=== PATIENT | female | born 1995 | race Caucasian/White ===

== ENCOUNTER 2017-01-15 21:00 | Observation (INO) | payer MEDICAID ==
[2017-01-15] MEDS ORDERED: TYLENOL 325 MG PO ONE (21:33)
--- NOTE | 2017-01-15 21:44 | ERPHSYRPT ---
- History of Present Illness Time Seen by Provider: 01/15/17 21:26 Source: patient, family (mother) Patient Subjective Stated Complaint: Pt states that today around 4 pm she started having pain in the left side of the head, neck, chest, back and abdomen. Denies chest pain at this time. Pt states she is 36 weeks . Triage Nursing Assessment: Pt alert and oriented x3. skin pink warm and dry. afebrile. pt does not appear to be in any distress at this time Physician History: CC: high blood pressure hx: 21 y/o patient of Dr Campos, at 36 weeks gestation. Uncomplicated . Around 4PM today she noted some headache, neck ache, pain in left shoulder, left side of her body. Went to [facility] and checked BP which was 168/ 105 and HR was elevated at 124. She felt light headed while eating. Worried about stroke as her grandmother had a stroke. She has had no focal weakness, numbness, tingling, dizziness. No real chest pain. No does not report CTX, urinary complaints, nor vaginal bleeding. EDC 02-11-17 Surg: eye ALL:None Meds: PNV Timing/Duration: today (4-5PM) Allergies/Adverse Reactions: No Known Drug Allergies Allergy (Unverified 01/15/17 21:05) Home Medications: Vits W-Ca,Fe,FA(<1Mg) [] 1 each PO DAILY 01/15/17 [History] Hx Tetanus, Diphtheria Vaccination/Date Given: No (unknown) Hx Influenza Vaccination/Date Given: Yes Hx Pneumococcal Vaccination/Date Given: No - Review of Systems Constitutional: Malaise, No Fever, No Chills Eyes: No Symptoms, No Vision Changes, No Double Vision Ears, Nose, & Throat: No Symptoms Respiratory: No Symptoms Cardiac: No Palpitations, No Syncope Abdominal/Gastrointestinal: No Nausea, No Vomiting Genitourinary Symptoms: No Dysuria Musculoskeletal: Back Pain, Neck Pain Skin: No Rash Neurological: Headache, No Focal Weakness, No Parasthesia All Other Systems: Reviewed and Negative - Past Medical History Pertinent Past Medical History: No - Past Surgical History Past Surgical History: Yes Other Surgical History: eye surgery - Social History Smoking Status: Former smoker Drug Use: none Patient Lives Alone: No - Female History Expected Date of Delivery: 02/11/17 - Nursing Vital Signs Nursing Vital Signs: Initial Vital Signs Temperature 98.0 F Temperature Source Oral Pulse Rate 121 Respiratory Rate 20 Blood Pressure [Right Arm] 141/84 Pain Intensity 4 - Physical Exam General Appearance: alert, obese Eye Exam: PERRL/EOMI, eyes nml inspection Ears, Nose, Throat Exam: normal ENT inspection, moist mucous membranes Neck Exam: normal inspection, non-tender, supple Respiratory Exam: normal breath sounds, lungs clear Cardiovascular Exam: regular rate/rhythm, No murmur Gastrointestinal/Abdomen Exam: soft, No tenderness, No distention Back Exam: normal inspection, No CVA tenderness Extremity Exam: normal range of motion, pedal edema (trace) Neurologic Exam: alert, oriented x 3, 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, 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, sensation nml, No motor deficits Skin Exam: warm, dry SpO2 Interpretation: normal SpO2: 95 Oxygen Delivery: Room Air Ordered Tests: Active Orders 24 hr Category Date Time Status Clean Catch Urine Specimen STAT Care 01/15/17 21:33 Active IV Insertion STAT Care 01/15/17 21:33 Active CBC W DIFF Stat Lab 01/15/17 21:33 Ordered CMP Stat Lab 01/15/17 21:33 Ordered UA Stat Lab 01/15/17 21:33 Ordered Urine Triage Profile Stat Lab 01/15/17 21:33 Ordered Medication Summary Discontinued Medications Generic Name Dose Route Start Last Admin Trade Name Freq PRN Reason Stop Dose Admin Acetaminophen 650 mg 01/15/17 21:33 Tylenol 325 Mg PO 01/15/17 21:34 STAT ONE - Progress Progress Note: 01/15/17 21:44 Pt stable here. R arm BP 125/73. LEft arm 131/82. Symptoms do not suggest SAH nor TAD. She has no focal neurological symptoms. Needs OB monitoring and rule out toxemia. Called Dr Rios for Dr Burgess and will send to labor room for evaluation. Counseled pt/family regarding: lab results, diagnosis, need for follow-up - Departure Time of Disposition: 21:45 Departure Disposition: Observation (labor room) Clinical Impression: isolated elvation of blood pressure, 36 weeks gestation of Condition: Stable Critical Care Time: No Referrals: DEANDRA BURGESS [Primary Care Provider] -
[2017-01-15] MEDS ORDERED: TYLENOL 325 MG ONE (21:51)
[2017-01-15 21:56] LABS: BASOPHIL % 0.2 % (0.0-0.4); Granulocytes % 74.7 % (36.0-66.0); Lymphocytes % 16.9 % (24.0-44.0); Mean Cell Volume 82.1 fl (78-100); Mean Corpuscular Hemoglobin 27.7 pg (26-32); Mean Platelet Volume 10.7 fl (6-9.5); Monocytes % 6.2 % (0.0-12.0); Platelet Count 258 K/mm3 (150-450); Red Blood Count 4.41 M/mm3 (4.1-5.4); Red Cell Distribution Width 12.8 % (11.5-14.0); White Blood Count 10.1 K/mm3 (4.0-10.5)
[2017-01-15] MEDS ORDERED: Dextrose 5%-Lr IV Solution 1000 ML 1,000 ML IV SCH (22:00)
[2017-01-15 22:08] LABS: Collection Type CLEAN CATCH
[2017-01-15 22:09] LABS: Bacteria FEW /HPF (NEGATIVE); COMPLETE URINE MICROSCOPIC? YES; Epithelial Cells MODERATE /HPF (FEW)
[2017-01-15 22:16] LABS: ALBUMIN 2.8 g/dL (3.4-5.0); ALKALINE PHOSPHATASE 95 U/L (46-116); ANION GAP 14.8 MEQ/L (5-15); BILIRUBIN,TOTAL 0.1 mg/dL (0.2-1.0); BLOOD UREA NITROGEN 8 mg/dL (9-20); CHLORIDE 103 mEq/L (98-107); Carbon Dioxide 22.2 mEq/L (21-32); Glucose 132 MG/DL (70-110); Potassium 3.2 mEq/L (3.5-5.1); SGOT/AST 12 U/L (15-37); SGPT/ALT 14 U/L (12-78); SODIUM 137 mEq/L (136-145); Total Protein 6.9 gm/dL (6.4-8.2)
[2017-01-15 23:04] VITALS: O2SAT 105
[2017-01-15 23:08] VITALS: BP 121/62; PULSE 93
== END 2017-01-15 23:45 | disposition home or self-care (01) ==
LOC: ED 21:00 → OB 21:52
PROVIDERS: ADMIT Family Medicine; ATTEND Family Medicine
DX: Z34.01 Encounter for supervision of normal first pregnancy, first trimester (principal)
CPT/HCPCS: 36415; 80053; 80307; 81000; 85025; 99285; G0378; A9270-GY

== ENCOUNTER 2017-02-07 16:42 | Observation (INO) | payer MEDICAID ==
[2017-02-07 21:09] VITALS: BP 137/86; PULSE 98
== END 2017-02-07 21:05 | disposition home or self-care (01) ==
LOC: OB 16:42 → UNDOADMOB 16:42 → UNDODISOB 21:05
PROVIDERS: ADMIT Family Medicine; ATTEND Family Medicine
DX: Z34.03 Encounter for supervision of normal first pregnancy, third trimester (principal)
CPT/HCPCS: 80307; G0378

== ENCOUNTER 2017-02-08 09:31 | Inpatient (IN) | payer MEDICAID ==
[2017-02-08] MEDS ORDERED: OMNIPEN 2 GM / NACL 100ML 100 ML IV ONE (09:59)
[2017-02-08] MEDS ORDERED: Lactated Ringers 1,000 ML IV SCH (10:00)
[2017-02-08] MEDS ORDERED: PITOCIN 30 UNITS/ LR 500 ML 500 ML IV SCH ×2 (10:00→17:30)
[2017-02-08 10:18] LABS: BASOPHIL % 0.2 % (0.0-0.4); Eosinophil % 1.4 % (0.00-5.0); Lymphocytes % 15.2 % (24.0-44.0); Mean Cell Volume 82.3 fl (78-100); Mean Platelet Volume 10.8 fl (6-9.5); Monocytes % 9.2 % (0.0-12.0); Platelet Count 252 K/mm3 (150-450); Red Cell Distribution Width 13.3 % (11.5-14.0); White Blood Count 11.3 K/mm3 (4.0-10.5)
[2017-02-08] MEDS: OMNIPEN 1GM / NaCl 100ML 100 ML IV SCH ×2 (15:44→19:36)
[2017-02-08] MEDS ORDERED: Lactated Ringers 1,000 ML IV ONE (18:03)
[2017-02-08] MEDS ORDERED: OB EPIDURAL NAROPIN/SUFENTANIL IN NACL EPIDURAL PRN (18:03)
[2017-02-08] MEDS ORDERED: Sensorcaine 0.25% 10 ML ONE (19:51)
[2017-02-08] MEDS ORDERED: TYLENOL EXTRA STRENGTH 500 MG PO PRN (21:53)
[2017-02-08] MEDS ORDERED: M-M-R II Vaccine With Diluent SQ ONE (21:53)
[2017-02-08] MEDS ORDERED: LANSINOH 40 GM TOP PRN (21:53)
[2017-02-08] MEDS ORDERED: Mylicon 80MG PO PRN (21:53)
[2017-02-08] MEDS ORDERED: Anucort-HC SUPPOSITORY PR PRN (21:53)
[2017-02-08] MEDS ORDERED: Dermoplast Spray TP PRN (21:53)
[2017-02-08] MEDS ORDERED: Adacel Vial IM ONE (21:53)
[2017-02-08] MEDS ORDERED: CORTISONE 1% CREAM TP PRN (21:53)
[2017-02-08] MEDS ORDERED: Dulcolax 10 MG SUPP PR PRN (21:53)
[2017-02-08] MEDS ORDERED: Ambien 10 MG PO PRN (21:53)
[2017-02-08] MEDS ORDERED: TUCKS TP PRN (21:53)
[2017-02-08] MEDS ORDERED: XYLOCAINE 1% HCL 20 ML MDV IJ PRN (23:43)
[2017-02-09] MEDS: MOTRIN 400 MG PO PRN ×2 (05:31→18:02)
[2017-02-09] MEDS: NORCO 5/325 MG PO PRN ×3 (05:32→19:51)
[2017-02-09 06:25] LABS: BASOPHIL % 0.1 % (0.0-0.4); Eosinophil % 0.1 % (0.00-5.0); Granulocytes % 86.1 % (36.0-66.0); Lymphocytes % 9.2 % (24.0-44.0); Mean Cell Volume 82.9 fl (78-100); Mean Corpuscular Hemoglobin 27.9 pg (26-32); Mean Platelet Volume 11.3 fl (6-9.5); Monocytes % 4.5 % (0.0-12.0); Platelet Count 292 K/mm3 (150-450); Red Blood Count 3.51 M/mm3 (4.1-5.4); Red Cell Distribution Width 13.1 % (11.5-14.0); White Blood Count 18.3 K/mm3 (4.0-10.5)
[2017-02-09] MEDS: Colace 100 MG PO SCH ×3 (09:51→22:15)
[2017-02-09] MEDS: FERREX 150 PO SCH (09:51)
[2017-02-10] MEDS: NORCO 5/325 MG PO PRN ×2 (00:04→07:42)
[2017-02-10] MEDS: MOTRIN 400 MG PO PRN ×3 (10:20→21:58)
[2017-02-10] MEDS: FERREX 150 PO SCH (10:20)
[2017-02-10] MEDS: Colace 100 MG PO SCH (10:20)
[2017-02-10 22:52] VITALS: BP 135/70; PULSE 93
== END 2017-02-10 22:00 | disposition home or self-care (01) | DRG 775 ==
LOC: OBSVTOIN 09:31 → OB 09:31
PROVIDERS: ADMIT Family Medicine; ATTEND Family Medicine
PROC: 10E0XZZ Delivery of Products of Conception, External Approach (ICD-10-PCS; principal; 2017-02-08)
PROC: 0HQ9XZZ Repair Perineum Skin, External Approach (ICD-10-PCS; 2017-02-08)
DX: O42.92 Full-term premature rupture of membranes, unspecified as to length of time between rupture and onset of labor (principal); Z3A.39 39 weeks gestation of pregnancy; Z37.0 Single live birth
CPT/HCPCS: 01967; 36415; 80307; 85025; 90472; 90707; 90715; G0378; J0290; J2590; J2795; A9270-GY

== ENCOUNTER 2017-02-14 17:15 | Emergency (ER) | payer MEDICAID ==
[2017-02-14] MEDS ORDERED: TORAdol 30 mg Injection IM ONE (17:28)
[2017-02-14] MEDS ORDERED: Norflex 60 MG/2 ML IM ONE (17:29)
[2017-02-14] MEDS ORDERED: Norflex 60 MG/2 ML ONE (17:33)
[2017-02-14] MEDS ORDERED: TORAdol 30 mg Injection ONE (17:33)
--- NOTE | 2017-02-14 17:35 | ERPHSYRPT ---
- History of Present Illness Time Seen by Provider: 02/14/17 17:30 Source: patient Exam Limitations: no limitations Patient Subjective Stated Complaint: headache since wednesday Triage Nursing Assessment: c/o frontal headache since wednesday--worse in intervals. denies n/v/d. vaginal delivery last wednesday with epidural. denies blurred to double vision. denies urination or bowel problems. skin pink. Physician History: headache since wednesday c/o frontal headache since wednesday--worse in intervals. denies n/v/d. vaginal delivery last wednesday with epidural. denies blurred to double vision. denies urination or bowel problems. Patient delivered baby 6 days ago vaginally Timing/Duration: day(s) (2-3 days) Quality: aching Head Pain Location: frontal Severity of Pain-Max: moderate Severity of Pain-Current: moderate Recent Head Trauma: no recent headache/trauma Associated Symptoms: denies symptoms Allergies/Adverse Reactions: No Known Drug Allergies Allergy (Verified 02/14/17 17:28) Home Medications: Vits W-Ca,Fe,FA(<1Mg) [] 1 each PO DAILY 01/15/17 [History] Ibuprofen 800 mg PO TID 02/14/17 [History] Hx Tetanus, Diphtheria Vaccination/Date Given: Yes Hx Influenza Vaccination/Date Given: Yes Hx Pneumococcal Vaccination/Date Given: No Immunizations Up to Date: Yes - Review of Systems Constitutional: No Symptoms Eyes: No Symptoms Ears, Nose, & Throat: No Symptoms Respiratory: No Symptoms Cardiac: No Symptoms Abdominal/Gastrointestinal: No Symptoms Musculoskeletal: No Symptoms Neurological: Headache Psychological: No Symptoms Endocrine: No Symptoms - Past Medical History Pertinent Past Medical History: Yes Neurological History: No Pertinent History ENT History: No Pertinent History Cardiac History: No Pertinent History Respiratory History: No Pertinent History Endocrine Medical History: No Pertinent History Musculoskeletal History: No Pertinent History GI Medical History: No Pertinent History History: No Pertinent History Female Reproductive Disorders: No Pertinent History Other Medical History: 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 - Past Surgical History Past Surgical History: No Neuro Surgical History: No Pertinent History Cardiac: No Pertinent History Respiratory: No Pertinent History Gastrointestinal: No Pertinent History Genitourinary: No Pertinent History Musculoskeletal: No Pertinent History Female Surgical History: No Pertinent History Other Surgical History: eye surgery - Social History Smoking Status: Never smoker How long have you smoked: 2yrs Exposure to second hand smoke: No Drug Use: none Patient Lives Alone: No - Nursing Vital Signs Nursing Vital Signs: Initial Vital Signs Temperature 98.4 F Temperature Source Oral Pulse Rate 99 Respiratory Rate 18 Blood Pressure [Right Arm] 154/89 Pain Intensity 4 - Physical Exam General Appearance: no apparent distress Eye Exam: PERRL/EOMI Ears, Nose, Throat Exam: normal ENT inspection Neck Exam: normal inspection Respiratory Exam: normal breath sounds 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: normal hearing, normal speech, PERRL, No abnormal eye position, No abnormal gag reflex, No abnormal speech, No facial asymmetry, No facial droop, No facial paresthesias, No facial weakness, No gaze palsy Coordination/Gait Exam: normal finger to nose Motor/Sensory Exam: no motor deficit Skin Exam: normal color SpO2 Interpretation: normal SpO2: 97 Oxygen Delivery: Room Air - Course Nursing assessment & vital signs reviewed: Yes Ordered Tests: Medication Summary Discontinued Medications Generic Name Dose Route Start Last Admin Trade Name Krissy PRN Reason Stop Dose Admin Ketorolac Tromethamine 60 mg 02/14/17 17:28 02/14/17 17:34 Toradol 30 Mg Injection IM 02/14/17 17:29 60 mg STAT ONE Administration Ketorolac Tromethamine Confirm 02/14/17 17:33 Toradol 30 Mg Injection Administered 02/14/17 17:34 Dose 60 mg .ROUTE .STK-MED ONE Orphenadrine Citrate 60 mg 02/14/17 17:29 02/14/17 17:34 Norflex 60 Mg/2 Ml IM 02/14/17 17:30 60 mg STAT ONE Administration Orphenadrine Citrate Confirm 02/14/17 17:33 Norflex 60 Mg/2 Ml Administered 02/14/17 17:34 Dose 60 mg .ROUTE .STK-MED ONE - Progress Progress: improved Air Movement: good Blood Culture(s) Obtained: No Antibiotics given: No Counseled pt/family regarding: diagnosis, need for follow-up - Departure Time of Disposition: 17:41 Departure Disposition: Home Clinical Impression: Migraine Qualifiers: Migraine type: without aura Status migrainosus presence: without status migrainosus Intractability: not intractable Qualified Code(s): G43.009 - Migraine without aura, not intractable, without status migrainosus Condition: Stable Critical Care Time: No Referrals: DEANDRA BLACKMON [Primary Care Provider] - Instructions: Headache, Migraine Additional Instructions: HEADACHE 1. After discharge from the emergency department, you should rest at home in a cool, dark, quiet place for 12-24 hours. 2. If any of the following signs or symptoms are noticed, you should be re- evaluated right away: A. Visual changes B. Stiff Neck C. Change in quality or location of pain D. Fever E. Recurrent vomiting 3. If pain medications were prescribed or given, they may cause drowsiness.
[2017-02-14 17:57] VITALS: BP 148/76; PULSE 76; O2SAT 100
== END 2017-02-14 17:57 | disposition home or self-care (01) ==
LOC: ED 17:15
DX: G43.009 Migraine without aura, not intractable, without status migrainosus (principal)
CPT/HCPCS: 96372; 99282; 99284; J1885; J2360

== ENCOUNTER 2017-09-26 18:34 | Emergency (ER) | payer OTHER ==
--- NOTE | 2017-09-26 19:37 | ERPHSYRPT ---
- History of Present Illness Time Seen by Provider: 09/26/17 19:08 Source: patient Exam Limitations: no limitations Patient Subjective Stated Complaint: pt states she injured left ankle in her yard around 1800 this evening. Triage Nursing Assessment: pt pink, warm, dry, left ankle has swelling no deformity. pedal pulse strong. Physician History: 22 y/o female comes to the ER after having a syncopal episode. Pt states that she was coming out of a house and then fell to the ground hitting the left side of her face. Pt arrives with left ankle pain but does not remember twisting her ankle or tripping over anything. Pt denies any headache, dizziness, chest pain, shortness of breath, palpitations, nausea, vomiting or diarrhea. No LOC. Pt describes the pain of the left ankle as sharp, constant, worse with movement, 8/ 10 and pt has not taken any pain meds. Witnessed: unwitnessed Prior Episodes: single episode today Timing/Duration: today Precipitating Factors: none Context: standing Loss of Consciousness: no loss of consciousness Charcter of event(s): collapsed Allergies/Adverse Reactions: No Known Drug Allergies Allergy (Verified 09/26/17 18:54) Hx Tetanus, Diphtheria Vaccination/Date Given: Yes (up to date) Hx Influenza Vaccination/Date Given: Yes Hx Pneumococcal Vaccination/Date Given: No Immunizations Up to Date: Yes - Past Medical History Pertinent Past Medical History: No Neurological History: No Pertinent History ENT History: No Pertinent History Cardiac History: No Pertinent History Respiratory History: No Pertinent History Endocrine Medical History: No Pertinent History Musculoskeletal History: No Pertinent History GI Medical History: No Pertinent History History: No Pertinent History Female Reproductive Disorders: No Pertinent History Other Medical History: 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 - Past Surgical History Past Surgical History: Yes Neuro Surgical History: No Pertinent History Cardiac: No Pertinent History Respiratory: No Pertinent History Gastrointestinal: No Pertinent History Genitourinary: No Pertinent History Musculoskeletal: No Pertinent History Female Surgical History: No Pertinent History Other Surgical History: eye surgery - Social History Smoking Status: Current every day smoker How long have you smoked: 4 Exposure to second hand smoke: No Drug Use: none Patient Lives Alone: No - Female History Hx Last Menstrual Period: 09/12/17 Hx Now: No - Review of Systems Constitutional: No Fever, No Chills Eyes: No Symptoms Ears, Nose, & Throat: No Symptoms Respiratory: No Cough, No Dyspnea Cardiac: No Chest Pain, No Edema, No Palpitations, No Syncope Abdominal/Gastrointestinal: No Abdominal Pain, No Nausea, No Vomiting, No Diarrhea Genitourinary Symptoms: No Dysuria, No Frequency Musculoskeletal: Joint Pain, Joint Swelling, No Back Pain, No Neck Pain Skin: No Rash Neurological: No Dizziness, No Focal Weakness, No Gait Changes, No Headache, No Seizure, No Sensory Changes Psychological: No Symptoms Endocrine: No Symptoms All Other Systems: Reviewed and Negative Physical Exam - Nursing Vital Signs Nursing Vital Signs: Initial Vital Signs Temperature 99.0 F 09/26/17 18:49 Pulse Rate 94 H 09/26/17 18:49 Respiratory Rate 20 09/26/17 18:49 Blood Pressure 125/82 09/26/17 18:49 O2 Sat by Pulse Oximetry 96 09/26/17 18:49 Pain Scale Pain Intensity 8 - Jack Coma Scale Best Eye Response (Jack): (4) open spontaneously Best Verbal Response (Jack): (5) oriented Best Motor Response (Jack): (6) obeys commands Jack Total: 15 - Physical Exam General Appearance: no apparent distress, alert Eye Exam: bilateral eye: PERRL, EOMI Ears, Nose, Throat Exam: normal ENT inspection, pharynx normal, moist mucous membranes Neck Exam: normal inspection, non-tender, supple, full range of motion Respiratory: normal breath sounds, lungs clear, No chest tenderness, No respiratory distress Cardiovascular: regular rate/rhythm, capillary refill <2 sec, No murmur, No pulse deficit Gastrointestinal: soft, No tenderness, No distention, No mass Back Exam: normal inspection, normal range of motion, No CVA tenderness, No vertebral tenderness Extremity Exam: normal inspection, normal range of motion, pelvis stable, joint swelling, limited range of motion, swelling, No tenderness Mental Status: alert, oriented x 3, 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 Exam: normal hearing, normal speech, PERRL, No facial droop Coordination/Gait: normal finger to nose, normal gait, normal cerebellar function, negative Romberg's sign Motor/Sensory: no motor deficit, no sensory deficit, no pronator drift Skin Exam: normal color, warm, dry, No rash SpO2 Interpretation: normal SpO2: 96 Oxygen Delivery: Room Air - Course Nursing assessment & vital signs reviewed: Yes EKG Interpreted by Me: RATE, NORMAL AXIS, NORMAL INTERVALS, NORMAL QRS Ordered Tests: Active Orders 24 hr Category Date Time Status Accucheck STAT Care 09/26/17 19:15 Active Franck Bandage Application -[facility] STAT Care 09/26/17 20:50 Active Clean Catch Urine Specimen STAT Care 09/26/17 20:58 Active Crutches STAT Care 09/26/17 20:59 Active EKG-ER Only STAT Care 09/26/17 19:15 Active IV Insertion STAT Care 09/26/17 19:15 Active Orthostatic Vital Signs STAT Care 09/26/17 19:15 Active ANKLE (3 VIEWS) Stat Exams 09/26/17 18:57 Completed HEAD WITHOUT CONTRAST [CT] Stat Exams 09/26/17 19:15 Taken CBC W DIFF Stat Lab 09/26/17 19:35 Completed CMP Stat Lab 09/26/17 19:35 Completed HCG QUALITATIVE,SERUM Stat Lab 09/26/17 19:35 Completed Manual Differential NC Stat Lab 09/26/17 19:35 Completed TROPONIN Q3H Lab 09/26/17 19:35 Completed TROPONIN Q3H Lab 09/26/17 22:30 Ordered UA W/RFX UR CULTURE Stat Lab 09/26/17 21:02 Received Medication Summary Discontinued Medications Generic Name Dose Route Start Last Admin Trade Name Freq PRN Reason Stop Dose Admin Ketorolac Tromethamine 30 mg 09/26/17 20:52 09/26/17 21:08 Toradol 30 Mg Injection IV 09/26/17 20:53 30 mg STAT ONE Administration Ketorolac Tromethamine Confirm 09/26/17 21:06 Toradol 30 Mg Injection Administered 09/26/17 21:07 Dose 30 mg .ROUTE .STK-MED ONE Lab/Rad Data: Laboratory Result Diagrams 09/26/17 19:35 09/26/17 19:35 Laboratory Results 09/26/17 09/26/17 09/26/17 Range/Units 19:35 19:35 19:35 WBC (4.0-10.5) K/mm3 RBC (4.1-5.4) M/mm3 Hgb (12.0-16.0) gm/dl Hct (35-47) % MCV (78-100) fl MCH (26-32) pg MCHC (32-36) g/dl RDW (11.5-14.0) % Plt Count (150-450) K/mm3 MPV (6-9.5) fl Segmented Neutrophils (36.0-66.0) % Band Neutrophils (0.0-2.0) % Lymphocytes (Manual) (24-44) % Monocytes (Manual) (0.0-12.0) % Eosinophils (Manual) (0.00-3.0) % Basophils (Manual) (0.0-1.0) % Differential Comment Platelet Estimate (NORMAL) Sodium 137 (136-145) mEq/L Potassium 3.8 (3.5-5.1) mEq/L Chloride 103 (98-107) mEq/L Carbon Dioxide 25.7 (21-32) mEq/L Anion Gap 12.4 (5-15) MEQ/L BUN 14 (9-20) mg/dL Creatinine 0.83 (0.55-1.30) mg/dl Estimated GFR > 60 ML/MIN Glucose 94 (70-110) MG/DL Calcium 9.1 (8.5-10.1) mg/dL Total Bilirubin 0.20 (0.2-1.0) mg/dL AST 23 (15-37) U/L ALT 35 (12-78) U/L Alkaline Phosphatase 70 (46-116) U/L Troponin I < 0.017 (0.000-0.056) ng/ml Serum Total Protein 7.6 (6.4-8.2) gm/dL Albumin 3.9 (3.4-5.0) g/dL Serum , Qual NEGATIVE (Negative) 09/26/17 Range/Units 19:35 WBC 8.5 (4.0-10.5) K/mm3 RBC 5.14 (4.1-5.4) M/mm3 Hgb 12.4 (12.0-16.0) gm/dl Hct 38.7 (35-47) % MCV 75.3 L (78-100) fl MCH 24.1 L (26-32) pg MCHC 32.0 (32-36) g/dl RDW 15.7 H (11.5-14.0) % Plt Count 243 (150-450) K/mm3 MPV 10.4 H (6-9.5) fl Segmented Neutrophils 60 (36.0-66.0) % Band Neutrophils 9 H (0.0-2.0) % Lymphocytes (Manual) 20 L (24-44) % Monocytes (Manual) 7 (0.0-12.0) % Eosinophils (Manual) 3 (0.00-3.0) % Basophils (Manual) 1 (0.0-1.0) % Differential Comment NORMAL Platelet Estimate NORMAL (NORMAL) Sodium (136-145) mEq/L Potassium (3.5-5.1) mEq/L Chloride (98-107) mEq/L Carbon Dioxide (21-32) mEq/L Anion Gap (5-15) MEQ/L BUN (9-20) mg/dL Creatinine (0.55-1.30) mg/dl Estimated GFR ML/MIN Glucose (70-110) MG/DL Calcium (8.5-10.1) mg/dL Total Bilirubin (0.2-1.0) mg/dL AST (15-37) U/L ALT (12-78) U/L Alkaline Phosphatase (46-116) U/L Troponin I (0.000-0.056) ng/ml Serum Total Protein (6.4-8.2) gm/dL Albumin (3.4-5.0) g/dL Serum , Qual (Negative) - Progress Progress: improved Progress Note: 09/26/17 21:20 The x ray of the ankle is within normal limits. The CT scan head shows mild hazziness at the atkins and white interface but has a negative neuro exam. The rest of the labs are within normal limits. Pt will be placed in an franck wrap, crutches and a script for toradol. - Departure Time of Disposition: 21:22 Departure Disposition: Home Clinical Impression: Ankle pain Qualifiers: Chronicity: acute Laterality: left Qualified Code(s): M25.572 - Pain in left ankle and joints of left foot Syncope Qualifiers: Syncope type: unspecified Qualified Code(s): R55 - Syncope and collapse Condition: Stable Critical Care Time: No Referrals: DEANDRA BLACKMON [Primary Care Provider] - Instructions: Ankle Sprain (DC), Syncope (Fainting) (DC) Additional Instructions: Return to the ER if you should have worsening ankle pain, passing out, dizziness , chest pain, palpitations, or shortness of breath. Prescriptions: Ketorolac Tromethamine [Toradol] 10 mg PO QID PRN #20 tablet PRN Reason: Pain
[2017-09-26 19:49] LABS: Granulocyte Absolute (ANC) 5.35 (1.4-6.9); Hematocrit 38.7 % (35-47); Hemoglobin 12.4 gm/dl (12.0-16.0); Mean Cell Volume 75.3 fl (78-100); Mean Corpuscular Hemoglobin 24.1 pg (26-32); Mean Platelet Volume 10.4 fl (6-9.5); Platelet Count 243 K/mm3 (150-450); Red Blood Count 5.14 M/mm3 (4.1-5.4); Red Cell Distribution Width 15.7 % (11.5-14.0); White Blood Count 8.5 K/mm3 (4.0-10.5)
[2017-09-26 20:02] LABS: ALBUMIN 3.9 g/dL (3.4-5.0); ALKALINE PHOSPHATASE 70 U/L (46-116); ANION GAP 12.4 MEQ/L (5-15); BLOOD UREA NITROGEN 14 mg/dL (9-20); CHLORIDE 103 mEq/L (98-107); Calcium 9.1 mg/dL (8.5-10.1); Carbon Dioxide 25.7 mEq/L (21-32); Creatinine 1 0.83 mg/dl (0.55-1.30); EST GLOMERULAR FILTRATION RATE > 60 ML/MIN; Glucose 94 MG/DL (70-110); Potassium 3.8 mEq/L (3.5-5.1); SGOT/AST 23 U/L (15-37); SGPT/ALT 35 U/L (12-78); SODIUM 137 mEq/L (136-145); Total Protein 7.6 gm/dL (6.4-8.2)
--- NOTE | 2017-09-26 21:02 | XRAY ---
Indication: Lateral ankle pain and swelling following fall. Comparison: May 27, 2011. 3 views of the left ankle demonstrates anterolateral soft tissue swelling and small effusion. No other bony, articular, or soft tissue abnormalities.
[2017-09-26] MEDS ORDERED: TORAdol 30 mg Injection ONE (21:06)
[2017-09-26] MEDS: TORAdol 30 mg Injection IV ONE (21:08)
[2017-09-26 21:11] LABS: BAND 9 % (0.0-2.0); Basophil 1 % (0.0-1.0); Eosinophil 3 % (0.00-3.0); Lymphocytes 20 % (24-44); Monocyte 7 % (0.0-12.0); Neutrophils 60 % (36.0-66.0); Platelet Estimate NORMAL (NORMAL); Total Cells Counted 100
[2017-09-26 21:28] LABS: Appearance SLIGHTLY CLOUDY (CLEAR); Bacteria MODERATE /HPF (NEGATIVE); Bilirubin NEGATIVE (NEGATIVE); Blood NEGATIVE Ery/ul (0-5); Epithelial Cells MODERATE /HPF (FEW); Glucose NEGATIVE (NEGATIVE); Ketones NEGATIVE (NEGATIVE); Leukocyte Esterase 1+ (NEGATIVE); Mucus MODERATE /HPF (NEGATIVE); Nitrite NEGATIVE (NEGATIVE); Protein,Urine Dip TRACE (Negative); Specific Gravity 1.025 (1.005-1.025); Urobilinogen NORMAL mg/dL (0-1)
[2017-09-26 21:43] VITALS: BP 121/70; PULSE 84; O2SAT 97
--- NOTE | 2017-09-27 08:50 | XRAY ---
Indication: Syncope. Headache following fall. Multiple contiguous axial images obtained through the head without contrast. Comparison: None Normal-appearing brain parenchyma, ventricles, and bony calvarium. Visualized paranasal sinuses and mastoid air cells are clear. Impression: Normal CT head without contrast exam. Comment: Preliminary interpretation was made by [facility]. No discrepancy. CTDI 51.37
== END 2017-09-26 21:43 | disposition home or self-care (01) ==
LOC: ED 18:34
DX: M25.572 Pain in left ankle and joints of left foot (principal); R55 Syncope and collapse; W01.0XXA Fall on same level from slipping, tripping and stumbling without subsequent striking against object, initial encounter; S00.83XA Contusion of other part of head, initial encounter
CPT/HCPCS: 36000; 36415; 70450; 73610; 80053; 81000; 82962; 84484; 84703; 85025; 87086; 93005; 96374; 99284; J1885

== ENCOUNTER 2018-06-02 19:40 | Observation (INO) | payer OTHER ==
[2018-06-02 20:29] LABS: Appearance SLIGHTLY CLOUDY (CLEAR); Bilirubin NEGATIVE (NEGATIVE); Blood NEGATIVE Ery/ul (0-5); Glucose NEGATIVE (NEGATIVE); Ketones NEGATIVE (NEGATIVE); Leukocyte Esterase NEGATIVE (NEGATIVE); Nitrite NEGATIVE (NEGATIVE); Protein,Urine Dip NEGATIVE (Negative); Specific Gravity 1.025 (1.005-1.025); Urobilinogen NEGATIVE mg/dL (0-1)
[2018-06-02] MEDS ORDERED: Lactated Ringers 1,000 ML IV SCH (21:35)
[2018-06-02 21:51] LABS: BASOPHIL % 0.2 % (0.0-0.4); Basophil (Absolute #) 0.02 (0-0.4); Eosinophil % 1.5 % (0.00-5.0); Eosinophil (Absolute #) 0.19 (0-0.5); Granulocyte Absolute (ANC) 8.83 (1.4-6.9); Hematocrit 36.6 % (35-47); Hemoglobin 12.5 gm/dl (12.0-16.0); Lymphocytes % 20.6 % (24.0-44.0); Mean Cell Volume 79.4 fl (78-100); Mean Corpuscular Hemoglobin 27.1 pg (26-32); Mean Corpuscular Hgb Concent. 34.2 g/dl (32-36); Mean Platelet Volume 10.8 fl (6-9.5); Monocyte (Absolute #) 0.97 (0.0-1.3); Monocytes % 7.7 % (0.0-12.0); Platelet Count 259 K/mm3 (150-450); Red Blood Count 4.61 M/mm3 (4.1-5.4); Red Cell Distribution Width 14.5 % (11.5-14.0); White Blood Count 12.6 K/mm3 (4.0-10.5)
[2018-06-02] MEDS ORDERED: Zofran 4 MG/2 ML VIAL IV ONE (22:00)
[2018-06-02] MEDS ORDERED: MORPHINE SULFATE 4 MG INJ IV ONE (22:00)
[2018-06-02 22:07] LABS: ALBUMIN 4.1 g/dL (3.5-5.0); ALKALINE PHOSPHATASE 68 U/L (38-126); ANION GAP 13.9 MEQ/L (5-15); BLOOD UREA NITROGEN 6 mg/dL (7-17); CHLORIDE 104 mmol/L (98-107); Calcium 9.6 mg/dL (8.4-10.2); Carbon Dioxide 21 mmol/L (22-30); Creatinine 1 0.38 mg/dL (0.52-1.04); Glucose 84 mg/dL (74-106); Potassium 3.7 mmol/L (3.5-5.1); SGOT/AST 15 U/L (14-36); SGPT/ALT 10 U/L (0-35); SODIUM 135 mmol/L (137-145); Total Protein 7.2 g/dL (6.3-8.2)
[2018-06-02] MEDS: Lactated Ringers 1,000 ML IV SCH (23:31)
[2018-06-02] MEDS ORDERED: Zofran 4 MG/2 ML VIAL IV PRN (23:32)
[2018-06-03] MEDS: MORPHINE SULFATE 4 MG INJ IV PRN ×2 (06:21→11:22)
[2018-06-03] MEDS: Lactated Ringers 1,000 ML IV SCH ×3 (07:13→23:58)
--- NOTE | 2018-06-03 07:58 | PCM.HP ---
History of Present Illness - Chief Complaint Chief Complaint: abd pain History of Present Illness: is a 22 year old female at 20+wks EGA who presented with diffuse severe abdominal and back pain. no vaginal bleeding or leakage of fluids , no nausea, vomiting or diarrhea. no fever, patient is writhing in the bed during exam. - Review of Systems Constitutional: No Fever, No Chills Respiratory: No Cough, No Short Of Breath Cardiac: No Chest Pain, No Edema, No Syncope Abdominal/Gastrointestinal: Abdominal Pain, No Nausea, No Vomiting, No Diarrhea , No Constipation Genitourinary Symptoms: No Dysuria Skin: No Rash All Other Systems: Reviewed and Negative Medications & Allergies Home Medications: Home Medication List Ketorolac Tromethamine [Toradol] 10 mg PO QID PRN #20 tablet 09/26/17 [Rx] Allergies/Adverse Reactions: Allergies Allergy/AdvReac Type Severity Reaction Status Date / Time No Known Drug Allergies Allergy Verified 09/26/17 18:54 - Past Medical History Past Medical History: No Neurological History: No Pertinent History ENT History: No Pertinent History Cardiac History: No Pertinent History Respiratory History: No Pertinent History Endocrine Medical History: No Pertinent History Musculoskelatal History: No Pertinent History GI Medical History: No Pertinent History History: No Pertinent History Reproductive Disorders: No Pertinent History Comment: 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 - Past Surgical History Past Surgical History: Yes Neuro Surgical History: No Pertinent History Cardiac History: No Pertinent History Respiratory Surgery: No Pertinent History GI Surgical History: No Pertinent History Genitourinary Surgical Hx: No Pertinent History Musculskeletal Surgical Hx: No Pertinent History Female Surgical History: No Pertinent History Other Surgical History: eye surgery - Social History Smoking Status: Never smoker How long have you smoked: 4 Exposure to second hand smoke: No Alcohol: Occasionally Drug Use: none - Physical Exam Vital Signs: Vital Signs - 24 hr Temp Pulse Resp BP BP 06/03/18 07:34 98.2 F 22 136/96 06/03/18 04:00 77 18 134/77 06/03/18 00:15 97.9 F 84 18 136/84 06/02/18 19:40 98.1 F 93 H 20 148/68 148/68 General Appearance: mild distress, alert, obese Neurologic Exam: alert, oriented x 3 Eye Exam: PERRL/EOMI, eyes nml inspection Respiratory Exam: normal breath sounds, lungs clear, No respiratory distress Cardiovascular Exam: regular rate/rhythm, normal heart sounds, normal peripheral pulses Gastrointestinal/Abdomen Exam: soft, normal bowel sounds, No tenderness, No mass Back Exam: normal inspection, normal range of motion, No CVA tenderness, No vertebral tenderness Extremity Exam: normal inspection, normal range of motion, pelvis stable Skin Exam: normal color, warm, dry, No rash Results - Labs Lab/Micro Results: Lab Results-Last 24 Hours 06/02/18 06/02/18 06/02/18 Range/Units 20:10 21:40 21:40 WBC 12.6 H (4.0-10.5) K/mm3 RBC 4.61 (4.1-5.4) M/mm3 Hgb 12.5 (12.0-16.0) gm/dl Hct 36.6 (35-47) % MCV 79.4 (78-100) fl MCH 27.1 (26-32) pg MCHC 34.2 (32-36) g/dl RDW 14.5 H (11.5-14.0) % Plt Count 259 (150-450) K/mm3 MPV 10.8 H (6-9.5) fl Gran % 70.0 H (36.0-66.0) % Eos # (Auto) 0.19 (0-0.5) Absolute Lymphs (auto) 2.60 (1.0-4.6) Absolute Monos (auto) 0.97 (0.0-1.3) Lymphocytes % 20.6 L (24.0-44.0) % Monocytes % 7.7 (0.0-12.0) % Eosinophils % 1.5 (0.00-5.0) % Basophils % 0.2 (0.0-0.4) % Absolute Granulocytes 8.83 H (1.4-6.9) Basophils # 0.02 (0-0.4) Sodium 135 L (137-145) mmol/L Potassium 3.7 (3.5-5.1) mmol/L Chloride 104 (98-107) mmol/L Carbon Dioxide 21 L (22-30) mmol/L Anion Gap 13.9 (5-15) MEQ/L BUN 6 L (7-17) mg/dL Creatinine 0.38 L (0.52-1.04) mg/dL Estimated GFR > 60.0 ML/MIN Glucose 84 (74-106) mg/dL Calcium 9.6 (8.4-10.2) mg/dL Total Bilirubin 0.30 (0.2-1.3) mg/dL AST 15 (14-36) U/L ALT 10 (0-35) U/L Alkaline Phosphatase 68 (38-126) U/L Serum Total Protein 7.2 (6.3-8.2) g/dL Albumin 4.1 (3.5-5.0) g/dL Urine Color YELLOW (YELLOW) Urine Appearance SLIGHTLY CLOUDY (CLEAR) Urine pH 5.0 (5-6) Ur Specific [place] 1.025 (1.005-1.025) Urine Protein NEGATIVE (Negative) Urine Ketones NEGATIVE (NEGATIVE) Urine Blood NEGATIVE (0-5) Cristiano/ul Urine Nitrite NEGATIVE (NEGATIVE) Urine Bilirubin NEGATIVE (NEGATIVE) Urine Urobilinogen NEGATIVE (0-1) mg/dL Ur Leukocyte Esterase NEGATIVE (NEGATIVE) Urine WBC (Auto) 3-5 (0-5) /HPF Urine RBC (Auto) 0-2 (0-2) /HPF U Epithel Cells (Auto) RARE (FEW) /HPF Urine Mucus (Auto) SLIGHT (NEGATIVE) /HPF Urine Culture Reflexed NO (NO) Urine Glucose NEGATIVE (NEGATIVE) mg/dL - Radiology Impressions Radiology Exams & Impressions: Radiology Procedures Category Date Time Status OB >14 WKS ADDL GESTATION [US] Stat Exams 06/03/18 07:56 Ordered Assessment/Plan (1) Abdominal pain affecting Current Visit: Yes Status: Acute Assessment & Plan: labs and urinalysis are thus far negative, will get ob ultrasound and plan surgical consult. appears to have a nonfocal abdominal exam Code(s): O26.899 - OTH RELATED CONDITIONS, UNSPECIFIED TRIMESTER; R10.9 - UNSPECIFIED ABDOMINAL PAIN
--- NOTE | 2018-06-03 09:03 | XRAY ---
Indication: Abdominal pain. Two-dimensional OB ultrasound performed. Comparison: May 11, 2018. Again there is a single viable intrauterine now in cephalic presentation. Normal four-chamber heart with heart rate 139 BPM. Normal three-vessel cord and cord insertion previous see documented. Visualized stomach and bladder unremarkable. Again posterior placenta without abruption/previa. Cervical length measures 3.3 cm. BPD measures 5.38 cm corresponding to 22 weeks 8 days. HC measures 19.19 cm corresponding to 21 weeks 3 days. AC measures 16.21 cm corresponding to 21 weeks 2 days. FL measures 3.55 cm corresponding to 21 weeks 2 days. KEN is 16.8 cm. Impression: Again single viable intrauterine with mean gestational age 21 weeks 4 days. Normal progression of . No new/acute findings.
[2018-06-03 12:24] LABS: BASOPHIL % 0.1 % (0.0-0.4); Basophil (Absolute #) 0.01 (0-0.4); Eosinophil % 0.5 % (0.00-5.0); Eosinophil (Absolute #) 0.06 (0-0.5); Granulocyte Absolute (ANC) 8.81 (1.4-6.9); Granulocytes % 78.3 % (36.0-66.0); Hematocrit 34.1 % (35-47); Hemoglobin 11.4 gm/dl (12.0-16.0); Lymphocyte (Absolute #) 1.67 (1.0-4.6); Lymphocytes % 14.8 % (24.0-44.0); Mean Cell Volume 81.4 fl (78-100); Mean Corpuscular Hemoglobin 27.2 pg (26-32); Mean Corpuscular Hgb Concent. 33.4 g/dl (32-36); Mean Platelet Volume 10.7 fl (6-9.5); Monocyte (Absolute #) 0.71 (0.0-1.3); Monocytes % 6.3 % (0.0-12.0); Platelet Count 240 K/mm3 (150-450); Red Blood Count 4.19 M/mm3 (4.1-5.4); Red Cell Distribution Width 14.5 % (11.5-14.0); White Blood Count 11.3 K/mm3 (4.0-10.5)
[2018-06-03 12:45] LABS: ALBUMIN 3.6 g/dL (3.5-5.0); ALKALINE PHOSPHATASE 60 U/L (38-126); AMYLASE 48 U/L (30-110); ANION GAP 13.4 MEQ/L (5-15); BLOOD UREA NITROGEN 5 mg/dL (7-17); CHLORIDE 104 mmol/L (98-107); Calcium 9.3 mg/dL (8.4-10.2); Carbon Dioxide 23 mmol/L (22-30); Creatinine 1 0.44 mg/dL (0.52-1.04); Glucose 88 mg/dL (74-106); LIPASE 18 U/L (23-300); SGOT/AST 12 U/L (14-36); SGPT/ALT 9 U/L (0-35); SODIUM 137 mmol/L (137-145); Total Protein 6.5 g/dL (6.3-8.2)
[2018-06-03] MEDS ORDERED: BRETHINE 1 MG/ML SQ ONE (14:26)
[2018-06-03] MEDS: TYLENOL 325 MG PO PRN ×2 (15:07→19:29)
[2018-06-04 06:07] LABS: BASOPHIL % 0.2 % (0.0-0.4); Basophil (Absolute #) 0.02 (0-0.4); Eosinophil % 2.1 % (0.00-5.0); Granulocytes % 64.8 % (36.0-66.0); Hematocrit 31.9 % (35-47); Hemoglobin 10.8 gm/dl (12.0-16.0); Lymphocyte (Absolute #) 2.34 (1.0-4.6); Lymphocytes % 24.1 % (24.0-44.0); Mean Cell Volume 81.6 fl (78-100); Mean Corpuscular Hemoglobin 27.6 pg (26-32); Mean Corpuscular Hgb Concent. 33.9 g/dl (32-36); Mean Platelet Volume 11.2 fl (6-9.5); Monocyte (Absolute #) 0.86 (0.0-1.3); Monocytes % 8.8 % (0.0-12.0); Platelet Count 239 K/mm3 (150-450); Red Blood Count 3.91 M/mm3 (4.1-5.4); Red Cell Distribution Width 14.4 % (11.5-14.0); White Blood Count 9.7 K/mm3 (4.0-10.5)
[2018-06-04 06:33] LABS: ALBUMIN 3.2 g/dL (3.5-5.0); ALKALINE PHOSPHATASE 56 U/L (38-126); ANION GAP 11.7 MEQ/L (5-15); BLOOD UREA NITROGEN 8 mg/dL (7-17); CHLORIDE 107 mmol/L (98-107); Calcium 9.1 mg/dL (8.4-10.2); Carbon Dioxide 23 mmol/L (22-30); Creatinine 1 0.42 mg/dL (0.52-1.04); Glucose 91 mg/dL (74-106); Potassium 3.6 mmol/L (3.5-5.1); SGOT/AST 14 U/L (14-36); SGPT/ALT 9 U/L (0-35); SODIUM 138 mmol/L (137-145)
[2018-06-04] MEDS: Lactated Ringers 1,000 ML IV SCH ×2 (08:42→16:54)
[2018-06-04] MEDS ORDERED: BRETHINE 1 MG/ML SQ ONE ×2 (11:34→14:46)
[2018-06-04] MEDS ORDERED: Celestone Soluspan 6MG/ML IM ONE (11:44)
[2018-06-04] MEDS ORDERED: Dulcolax 10 MG SUPP PR ONE (16:02)
[2018-06-04] MEDS ORDERED: Miralax Powder 17GM PACKET ONE (16:15)
[2018-06-04] MEDS: TYLENOL 325 MG PO PRN (18:23)
--- NOTE | 2018-06-04 19:06 | XRAY ---
Indication: General abdomen pain. 2-dimensional abdominal sonogram performed. Comparison: None Gallbladder normally distended with moderate intraluminal sludge and 1.4 cm gallstone. No gallbladder wall thickening or pericholecystic fluid. Common bile duct measures 3 mm. No intrahepatic biliary distention. Visualized portions of the liver, pancreas, spleen, urinary bladder, and aorta sonographically unremarkable. No ascites. Right kidney measures 12.1 x 4.6 x 5.0 cm and the left measures 12.2 x 4.6 x 4.7 cm. No suspicious solid/cystic renal mass or hydronephrosis. Impression: Gallbladder sludge and cholelithiasis without cholecystitis. Remaining abdominal sonogram is negative. Comment: Preliminary report was given.
[2018-06-04] MEDS ORDERED: Dulcolax 10 MG SUPP ONE (20:10)
[2018-06-04 23:37] VITALS: BP 137/75; PULSE 89
[2018-06-05] MEDS ORDERED: Miralax Powder 17GM PACKET PO ONE (16:03)
--- NOTE | 2018-06-06 09:09 | CONS ---
CONSULT DATE: 06/03/2018 HISTORY: This patient presents with one day of abdominal pain. She has also noticed a little bit of blood in her stool for the past two days. She is 21 weeks . She had contractions today and received medications to reduce her contractions. Her pain is a little bit better since her contractions have slowed down. Her abdominal pain is all over. It does not really localize at all. She has had some nausea with the pain. She also had some chest pain when the pain was quite severe. She has not had pain like this before. She denies fever, chills or dysuria. She had a normal bowel movement. She is passing gas today. She had a bowel movement yesterday. No diarrhea. REVIEW OF SYSTEMS: Twelve systems reviewed and negative except for in the history of present illness. PAST MEDICAL HISTORY: This is her second . Her first was a vaginal delivery. PAST SURGICAL HISTORY: Eye surgery. MEDICATIONS: vitamin. ALLERGIES: NKDA. SOCIAL HISTORY: No tobacco. No alcohol. FAMILY HISTORY: Diabetes, Crohn's in her aunt. PHYSICAL EXAMINATION: GENERAL: No acute distress. HEENT: Sclera nonicteric. Extraocular movements intact. NECK: Supple. No JVD. CHEST: Nonlabored breathing. ABDOMEN: Gravid, soft, mild tenderness in the left side of the abdomen, right lower abdomen and umbilical. No guarding. No rebound. No signs of peritonitis. EXTREMITIES: No peripheral edema. NEURO: Awake, alert and oriented. PSYCH: Appropriate mood and affect. ASSESSMENT: Abdominal pain and 21 weeks . PLAN: Discussed imaging options with the patient including MRI and CT scan. MRI is not available at this time and will not be available until Wednesday. CT scan does carry some radiation risk to the fetus. The patient's pain is not localized at all and there are no signs of peritonitis. I will plan for continued observation and repeat evaluation tomorrow. If the patient's pain persists or worsens, the patient may need imaging with CT scan.
== END 2018-06-04 23:30 | disposition home or self-care (01) ==
LOC: OB 19:40
PROVIDERS: ADMIT Family Medicine; ATTEND Family Medicine
DX: O26.892 Other specified pregnancy related conditions, second trimester (principal); Z3A.21 21 weeks gestation of pregnancy; R10.84 Generalized abdominal pain
CPT/HCPCS: 36415; 76700; 76805; 80053; 81001; 82150; 83690; 85025; G0378; 96372; J0702; J2270; J2405; A9270-GY

== ENCOUNTER 2018-09-05 12:23 | Observation (INO) | payer OTHER ==
--- NOTE | 2018-09-05 13:10 | XRAY ---
Indication: Evaluate KEN. Limited OB ultrasound performed to evaluate KEN. Four-quadrant KEN is 11.6 cm, previously 15.7 cm on July 19, 2018.
[2018-09-05 13:32] VITALS: BP 144/67; PULSE 110
== END 2018-09-05 13:15 | disposition home or self-care (01) ==
LOC: OB 12:23
PROVIDERS: ADMIT Family Medicine; ATTEND Family Medicine
DX: Z34.83 Encounter for supervision of other normal pregnancy, third trimester (principal)
CPT/HCPCS: 59025; 76815; G0378

== ENCOUNTER 2018-09-13 10:03 | Observation (INO) | payer OTHER ==
[2018-09-13 10:38] VITALS: BP 112/65; PULSE 92
--- NOTE | 2018-09-13 11:15 | XRAY ---
Indication: Evaluate KEN. Limited OB ultrasound performed to evaluate KEN. Four-quadrant KEN is 12.6 cm, previously 11.6 cm on September 05, 2018.
== END 2018-09-13 11:27 | disposition home or self-care (01) ==
LOC: OB 10:03
PROVIDERS: ADMIT Family Medicine; ATTEND Family Medicine
DX: Z34.83 Encounter for supervision of other normal pregnancy, third trimester (principal)
CPT/HCPCS: 76815

== ENCOUNTER 2018-09-20 10:15 | Observation (INO) | payer OTHER ==
[2018-09-20 11:55] VITALS: BP 138/83; PULSE 101
--- NOTE | 2018-09-20 12:01 | XRAY ---
Indication: induced hypertension. Limited OB ultrasound performed to evaluate KEN. heart rate 137 BPM. Four-quadrant KEN is 13 cm, previously 12.6 cm on September 13, 2018.
== END 2018-09-20 11:40 | disposition home or self-care (01) ==
LOC: OB 10:15
PROVIDERS: ADMIT Family Medicine; ATTEND Family Medicine
DX: Z34.83 Encounter for supervision of other normal pregnancy, third trimester (principal)
CPT/HCPCS: 59025; 76815; G0378

== ENCOUNTER 2018-09-22 19:28 | Observation (INO) | payer OTHER ==
[2018-09-22 21:07] LABS: Amphetamine,Urine NEGATIVE (NEGATIVE); Barbiturate,Urine NEGATIVE (NEGATIVE); Benzodiazepine,Urine NEGATIVE (NEGATIVE); Cocaine,Urine NEGATIVE (NEGATIVE); Methadone,Urine NEGATIVE (NEGATIVE); Opiate,Urine NEGATIVE (NEGATIVE); PCP,Urine NEGATIVE (NEGATIVE); THC,Urine NEGATIVE (NEGATIVE)
[2018-09-22 23:09] VITALS: BP 137/66; PULSE 104
== END 2018-09-22 22:30 | disposition home or self-care (01) ==
LOC: OB 19:28
PROVIDERS: ADMIT Family Medicine; ATTEND Family Medicine
DX: Z34.83 Encounter for supervision of other normal pregnancy, third trimester (principal)
CPT/HCPCS: 80307; 83986; G0378

== ENCOUNTER 2018-09-26 05:00 | Inpatient (IN) | payer OTHER ==
[~2018-09-26 05:00] MED LIST: BRETHINE 1 MG/ML SQ PRN; PITOCIN 30 UNITS/ LR 500 ML 500 ML IV SCH; XYLOCAINE 1% HCL 20 ML MDV IJ PRN; Zofran 4 MG/2 ML VIAL IV PRN
[2018-09-26] MEDS: Lactated Ringers 1,000 ML IV SCH ×2 (05:50→13:50)
[2018-09-26 06:01] LABS: Hematocrit 31.2 % (35-47); Hemoglobin 9.8 gm/dl (12.0-16.0); Mean Cell Volume 75.9 fl (78-100); Mean Corpuscular Hemoglobin 23.8 pg (26-32); Mean Corpuscular Hgb Concent. 31.4 g/dl (32-36); Mean Platelet Volume 10.6 fl (6-9.5); Platelet Count 285 K/mm3 (150-450); Red Blood Count 4.11 M/mm3 (4.1-5.4); Red Cell Distribution Width 14.9 % (11.5-14.0)
[2018-09-26 07:06] LABS: ANISOCYTOSIS 1+; ATYPICAL LYMPHS 1 %; Lymphocytes 19 % (24-44); Monocyte 2 % (0.0-12.0); Neutrophils 78 % (36.0-66.0); Platelet Estimate NORMAL (NORMAL); Poikilocytosis 1+; Total Cells Counted 100
[2018-09-26 07:34] LABS: Amphetamine,Urine NEGATIVE (NEGATIVE); Barbiturate,Urine NEGATIVE (NEGATIVE); Benzodiazepine,Urine NEGATIVE (NEGATIVE); Cocaine,Urine NEGATIVE (NEGATIVE); Methadone,Urine NEGATIVE (NEGATIVE); Opiate,Urine NEGATIVE (NEGATIVE); PCP,Urine NEGATIVE (NEGATIVE); THC,Urine NEGATIVE (NEGATIVE)
[2018-09-26] MEDS ORDERED: Lactated Ringers 1,000 ML IV ONE (07:50)
[2018-09-26] MEDS ORDERED: Ephedrine Sulfate 50 MG/ML IV PRN (07:50)
[2018-09-26] MEDS ORDERED: OB EPIDURAL NAROPIN/SUFENTANIL IN NACL EPIDURAL PRN (07:50)
[2018-09-26 10:25] VITALS: O2SAT 99
[2018-09-26] MEDS ORDERED: Dermoplast Spray TP PRN (13:16)
[2018-09-26] MEDS ORDERED: NORCO 5/325 MG PO PRN (13:16)
[2018-09-26] MEDS ORDERED: Dulcolax 10 MG SUPP PR PRN (13:16)
[2018-09-26] MEDS ORDERED: Mylicon 80MG PO PRN (13:23)
[2018-09-26] MEDS ORDERED: LANSINOH 40 GM TOP PRN (13:23)
[2018-09-26] MEDS ORDERED: Anucort-HC SUPPOSITORY PR PRN (13:23)
[2018-09-26] MEDS ORDERED: CORTISONE 1% CREAM TP PRN (13:23)
[2018-09-26] MEDS ORDERED: TUCKS TP PRN (13:23)
[2018-09-26] MEDS ORDERED: Ambien 10 MG PO PRN (13:23)
[2018-09-26] MEDS ORDERED: CLARITIN 10 MG PO PRN (15:10)
[2018-09-26] MEDS: TYLENOL EXTRA STRENGTH 500 MG PO PRN ×2 (15:27→23:29)
[2018-09-26] MEDS ORDERED: Colace 100 MG ONE (19:30)
[2018-09-26] MEDS: MOTRIN 400 MG PO PRN (19:32)
[2018-09-26] MEDS: Colace 100 MG PO SCH (19:32)
[2018-09-27] MEDS: MOTRIN 400 MG PO PRN ×2 (02:57→10:08)
[2018-09-27 06:28] LABS: Hemoglobin 8.7 gm/dl (12.0-16.0); Mean Cell Volume 76.5 fl (78-100); Mean Corpuscular Hgb Concent. 31.1 g/dl (32-36); Mean Platelet Volume 11.3 fl (6-9.5); Platelet Count 254 K/mm3 (150-450); Red Blood Count 3.66 M/mm3 (4.1-5.4); White Blood Count 13.3 K/mm3 (4.0-10.5)
[2018-09-27 06:36] LABS: Mean Corpuscular Hemoglobin 23.7 pg (26-32)
[2018-09-27 07:52] LABS: ANISOCYTOSIS 2+; BAND 1 % (0.0-2.0); Basophil 1 % (0.0-1.0); Eosinophil 1 % (0.00-3.0); Lymphocytes 14 % (24-44); Monocyte 5 % (0.0-12.0); Neutrophils 78 % (36.0-66.0); Platelet Estimate NORMAL (NORMAL); Polychromasia 1+; Total Cells Counted 100; Toxic Granulation 1+
[2018-09-27] MEDS: TYLENOL EXTRA STRENGTH 500 MG PO PRN ×2 (08:33→15:02)
[2018-09-27] MEDS ORDERED: FERREX 150 PO SCH (10:00)
[2018-09-27] MEDS: Colace 100 MG PO SCH (10:09)
[2018-09-27 14:57] VITALS: BP 134/75; PULSE 89
== END 2018-09-27 16:10 | disposition home or self-care (01) | DRG 833 ==
LOC: OB 05:00 → OBSVTOIN 07:57
PROVIDERS: ADMIT Family Medicine; ATTEND Family Medicine
DX: O14.03 Mild to moderate pre-eclampsia, third trimester (principal); O69.81X0 Labor and delivery complicated by cord around neck, without compression, not applicable or unspecified; Z3A.38 38 weeks gestation of pregnancy; Z37.0 Single live birth
CPT/HCPCS: 36415; 80307; 82962; 85025; 86701; 86702; 87086; 87389; G0378; J2590; J2795; A9270-GY

== ENCOUNTER 2019-02-01 01:39 | Emergency (ER) | payer OTHER ==
[2019-02-01 01:50] VITALS: PULSE 106; O2SAT 97
[2019-02-01 02:04] VITALS: BP 130/92
--- NOTE | 2019-02-01 02:05 | ERPHSYRPT ---
- History of Present Illness Time Seen by Provider: 02/01/19 01:50 Source: patient, family Exam Limitations: no limitations Patient Subjective Stated Complaint: pt is alert and oriented. pt comes in with c/o a "bite" to her right posterior part of her upper leg. area has a small white center, with red, warm to touch, firm area around the center. pt denies drainage. pt denies fever. Triage Nursing Assessment: see above Physician History: 23 y/o obese white female presents with 3 day h/o localized, red, tender area right posterior upper leg. pt is not diabetic. never had anything like this in the past. Timing/Duration: day(s) (3) Quality: burning, painful Severity: mild Location: extremities (right post thigh) Possible Causes: no cause identified, other (possible insect bite vs folliculitis) Associated Symptoms: change in skin texture Allergies/Adverse Reactions: No Known Drug Allergies Allergy (Verified 09/22/18 19:53) Hx Tetanus, Diphtheria Vaccination/Date Given: Yes Hx Influenza Vaccination/Date Given: Yes Hx Pneumococcal Vaccination/Date Given: No - Review of Systems Constitutional: No Symptoms Eyes: No Symptoms Ears, Nose, & Throat: No Symptoms Respiratory: No Symptoms Cardiac: No Symptoms Abdominal/Gastrointestinal: No Symptoms Genitourinary Symptoms: No Symptoms Musculoskeletal: No Symptoms Skin: Cellulitis, Induration Neurological: No Symptoms Psychological: No Symptoms Endocrine: No Symptoms Hematologic/Lymphatic: No Symptoms Immunological/Allergic: No Symptoms All Other Systems: Reviewed and Negative - Past Medical History Pertinent Past Medical History: No Neurological History: No Pertinent History ENT History: No Pertinent History Cardiac History: No Pertinent History Respiratory History: No Pertinent History Endocrine Medical History: No Pertinent History Musculoskeletal History: No Pertinent History GI Medical History: No Pertinent History History: No Pertinent History Female Reproductive Disorders: No Pertinent History Other Medical History: 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 - Past Surgical History Past Surgical History: Yes Neuro Surgical History: No Pertinent History Cardiac: No Pertinent History Respiratory: No Pertinent History Gastrointestinal: No Pertinent History Genitourinary: No Pertinent History Musculoskeletal: No Pertinent History Female Surgical History: No Pertinent History Other Surgical History: eye surgery - Social History Smoking Status: Current every day smoker How long have you smoked: 1 month Exposure to second hand smoke: No Drug Use: none Patient Lives Alone: No - Female History Hx Now: No - Nursing Vital Signs Nursing Vital Signs: Initial Vital Signs Pulse Rate 106 H 02/01/19 01:44 Respiratory Rate 18 02/01/19 01:44 O2 Sat by Pulse Oximetry 97 02/01/19 01:44 Pain Scale Pain Intensity 6 - Physical Exam General Appearance: no apparent distress, alert, anxiety Eye Exam: PERRL/EOMI Ears, Nose, Throat Exam: normal ENT inspection Neck Exam: normal inspection, non-tender, supple, full range of motion Respiratory Exam: No chest tenderness, No respiratory distress Gastrointestinal/Abdomen Exam: No tenderness Pelvic Exam: not done Rectal Exam: not done Back Exam: normal inspection, normal range of motion, No CVA tenderness, No vertebral tenderness Extremity Exam: normal range of motion, pelvis stable, inflammation, swelling, tenderness, other (right posterior thigh. no abscess. induration and localized cellulitis) Neurologic Exam: alert Skin Exam: other (see above) Lymphatic Exam: No adenopathy SpO2 Interpretation: normal SpO2: 97 O2 Delivery: Room Air - Progress Progress: unchanged Counseled pt/family regarding: diagnosis, need for follow-up - Departure Departure Disposition: Home Clinical Impression: Cellulitis, Induration of skin Condition: Stable Critical Care Time: No Referrals: NABILA VIRGEN MD [Primary Care Provider] - Additional Instructions: warm compresses to area 3 times daily. not directly on skin. return to ED if abscess forms. Prescriptions: Hydrocodone/APAP 5-325 Tab^^^ [[place] 5-325 Tablet^^^] 1 tab PO Q8H PRN PRN #9 tablet MDD 6 PRN Reason: Pain Smz/Tmp Ds Tablet [Bactrim Ds Tablet] 1 udtab PO BID #14 tablet
[2019-02-01] MEDS ORDERED: NORCO 5/325 MG PO ONE (02:08)
[2019-02-01] MEDS ORDERED: Rocephin 1000 MG INJ IM ONE (02:08)
[2019-02-01] MEDS ORDERED: BACTRIM DS TABLET PO STA (02:09)
[2019-02-01] MEDS ORDERED: BACTRIM DS TABLET PO ONE (02:11)
[2019-02-01] MEDS ORDERED: NORCO 5/325 MG ONE (02:12)
[2019-02-01] MEDS ORDERED: ROCEPHIN 1 Gm-D5w 50 ml Bag** 1 G/50 ML IVPB IV ONE (02:13)
[2019-02-01] MEDS ORDERED: Rocephin 1000 MG INJ ONE (02:15)
== END 2019-02-01 02:43 | disposition home or self-care (01) ==
LOC: ED 01:39
DX: L03.90 Cellulitis, unspecified (principal); R23.4 Changes in skin texture
CPT/HCPCS: 96372; 99284; J0696; A9270-GY